=== PATIENT | male | born 1995 | race Hispanic/Latino ===

== ENCOUNTER 2020-07-31 19:54 | Emergency (ER) | payer OTHER ==
[~2020-07-31] VITALS: Ht 172.7 cm; Wt 65.8 kg
[2020-07-31 23:42] VITALS: BP 150/92
== END 2020-07-31 23:42 | disposition home or self-care (01) ==
LOC: FSED 20:48
DX: M79.641 Pain in right hand (principal); S60.221A Contusion of right hand, initial encounter; W21.89XA Striking against or struck by other sports equipment, initial encounter; Y93.71 Activity, boxing; Y92.39 Other specified sports and athletic area as the place of occurrence of the external cause; F41.9 Anxiety disorder, unspecified
CPT/HCPCS: 99283